=== PATIENT | male | born 1985 | race Caucasian/White ===

== ENCOUNTER 2022-03-27 11:13 | Emergency (ER) | payer OTHER, SELFPAY ==
[2022-03-27 11:23] VITALS: BP 146/81; PULSE 50; RESP 18; TEMP 36.6; O2SAT 100; BMI 25.8
[2022-03-27] MEDS: TET,DIPH,PERTUSS(ACELL),VAC/PF 0.5 ML SYRINGE IM (13:40)
[2022-03-27] MEDS: BACITRACIN OINT 0.9 GM PCKT 2 APPLIC TOP (14:14)
[2022-03-27] MEDS: LIDOCAINE 2% W/EPI INJ 1 ML INJ (14:14)
--- NOTE | 2022-03-27 14:36 | ED.WOUNDLAC ---
HPI - Wound/Laceration <Michael Carver PA-C - Last Filed: 03/27/22 14:45> General Chief Complaint: Wound/Laceration Stated Complaint: need sticthes top lt arm Time Seen by Provider: 03/27/22 12:06 Source: patient Mode of arrival: Ambulatory History of Present Illness HPI narrative: Patient is a 36-year-old male who presents to the emergency room today with complaint of cut to his left arm. 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 This happened earlier this morning. Patient states he is sure that no glass or debris entered the wound. Also states he needs a tetanus shot and would like antibiotics as a prophylaxis for infection. Patient denies any other concerns at this time Related Data Previous Rx's Medication Instructions Recorded cephalexin 500 mg capsule 500 mg PO QID #20 caps 03/27/22 Allergies Allergy/AdvReac Type Severity Reaction Status Date / Time No Known Drug Allergies Allergy Verified 03/27/22 11:23 Review of Systems <Michael Carver PA-C - Last Filed: 03/27/22 14:45> Review of Systems Narrative: R.O.S.: General: No fever, chills or fatigue. Cardiovascular: No chest pain or palpitations Respiratory: No S.O.B. HEENT: No congestion, ear pain, rhinorrhea, sore throat or tinnitus Gastrointestinal: No nausea or vomiting Skin: Cut to left lower arm. Neurological: Awake, alert and in not apparent distress. No Headaches, changes in vision or other related neurological concerns. Exam <Michael Carver PA-C - Last Filed: 03/27/22 14:45> Narrative Exam Narrative: Physical Exam: ? General: normal appearance, well developed, well nourished, alert, and awake. Not in acute distress. ? Head: Normocephalic, no lesions. Chest: Lungs CTAB, no rales, rhonchi or wheezes. ?? Heart: RRR, no murmurs, rubs or gallops. Eyes: PERRLA, EOM's full, conjunctivae clear. ? Neuro: Physiological, no localizing findings, CN3-12 intact. ?? Extremities: Warm, well perfused, FROM, no deformities, no edema. ?? Skin: Patient has a 2 cm laceration to the left distal dorsal arm. The laceration has minor bleeding and minor erythema no foreign body noted at this time. The laceration is on the dorsal radial side of the arm and is about 2 in superior to the wrist. The left arm and hand has good range of motion good capillary refill and intact sensation to touch.? PSYCHIATRIC: The mood is good, no blunted affect. Speech is clear. Thought process is linear, thought content is appropriate. The voice is without significant inflection. Initial Vital Signs Initial Vital Signs: Vital Signs Temperature 98 F 03/27/22 11:23 Pulse Rate 50 L 03/27/22 11:23 Respiratory Rate 18 03/27/22 11:23 Blood Pressure 146/81 H 03/27/22 11:23 Pulse Oximetry 100 03/27/22 11:23 Oxygen Delivery Method 03/27/22 11:23 <Paramjit Srinivasan DO - Last Filed: 03/29/22 11:52> Initial Vital Signs Initial Vital Signs: Vital Signs Temperature 98 F 03/27/22 11:23 Pulse Rate 50 L 03/27/22 11:23 Respiratory Rate 18 03/27/22 11:23 Blood Pressure 146/81 H 03/27/22 11:23 Pulse Oximetry 100 03/27/22 11:23 Oxygen Delivery Method 03/27/22 11:23 Procedures <Michael Carver PA-C - Last Filed: 03/27/22 14:45> Laceration Repair Laceration 1: Site: upper extremity Side (If applicable): left Size (cm): 2 Description: clean Depth: simple, single layer Local Anesthetic: lidocaine 2% and with epi Amount of anesthesia used (mL): 1 Skin layer closed with: nylon Skin layer suture size: 4-0 Number of sutures: 3 Technique: simple, interrupted Course <Michael Carver PA-C - Last Filed: 03/27/22 14:45> Orders Ordered: Discontinued Medications Bacitracin (Bacitracin Oint 0.9 Gm Pckt) 2 applic TOP NOW ONE Stop: 03/27/22 14:03 Last Admin: 03/27/22 14:14 Dose: 2 applic Documented By: RAIZA Diphtheria/Tetanus/Acell Pertussis (Tet,Diph,Pertuss(Acell),Vac/Pf 0.5 Ml Syringe) 0.5 ml IM .ONCE ONE Stop: 03/27/22 11:28 Last Admin: 03/27/22 13:40 Dose: 0.5 ml Documented By: RAIZA Lidocaine/Epinephrine (Lidocaine 2% W/Epi Inj) 1 ml INJ INTRA-OP ONE Stop: 03/27/22 14:03 Last Admin: 03/27/22 14:14 Dose: 1 ml Documented By: RAIZA Vital Signs Vital signs: Vital Signs - 8 hr 03/27/22 11:23 Temperature 98 F Pulse Rate 50 L Respiratory Rate 18 Blood Pressure 146/81 H Pulse Oximetry 100 Oxygen Delivery Method Room Air <Paramjit Srinivasan DO - Last Filed: 03/29/22 11:52> Orders Ordered: Discontinued Medications Bacitracin (Bacitracin Oint 0.9 Gm Pckt) 2 applic TOP NOW ONE Stop: 03/27/22 14:03 Last Admin: 03/27/22 14:14 Dose: 2 applic Documented By: RAIZA Diphtheria/Tetanus/Acell Pertussis (Tet,Diph,Pertuss(Acell),Vac/Pf 0.5 Ml Syringe) 0.5 ml IM .ONCE ONE Stop: 03/27/22 11:28 Last Admin: 03/27/22 13:40 Dose: 0.5 ml Documented By: RAIZA Lidocaine/Epinephrine (Lidocaine 2% W/Epi Inj) 1 ml INJ INTRA-OP ONE Stop: 03/27/22 14:03 Last Admin: 03/27/22 14:14 Dose: 1 ml Documented By: RAIZA Vital Signs Vital signs: Vital Signs - 8 hr 03/27/22 11:23 Temperature 98 F Pulse Rate 50 L Respiratory Rate 18 Blood Pressure 146/81 H Pulse Oximetry 100 Oxygen Delivery Method Room Air MDM - Wound/Laceration <Michael Carver PA-C - Last Filed: 03/27/22 14:45> MDM Narrative Medical decision making narrative: Patient is a 36-year-old male who presents to the emergency room today with her mother with a cut to 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 Upon evaluation of the arm the wound was clean with no foreign body noted on physical examination. Tdap was administered the wound was closed using 3 interrupted sutures without complications. Antibiotics was ensured issued as prophylaxis against infection. Dressing was applied and patient was instructed on care of the wound area. Provide also discussed emergent concerns include cellulitis abscesses another related. Patient also advised to return to the emergency room for any emergent concerns arise patient agrees with plan Discharge Plan Departure Patient Disposition: Home Clinical Impression: Laceration Instructions: DI for Laceration Repair Activity Restrictions/Additional Instructions: *You have been diagnosed with [laceration. Repaired the laceration by inserting 3 interrupted sutures to close the 2 cm laceration. We also applied antibiotic ointment and a dressing. He was also given antibiotic ointment dressing and instructions for care. A suggestion follow these and I also suggest to keep the area dry and refrain from any strenuous or overuse of the extremity involving the close laceration. You also been ordered antibiotics to prophylactically members help with possibility of a dirty of infection. Suggested antibiotics as ordered since discharge she return to the emergency room should any emergent concerns arise.] *What to do: *Please continue to take your regular medications as directed. [ ] New medication prescriptions sent to your pharmacy: [ ] [x] New medication written as a paper prescription [ ] No new medications given *Please follow up with your primary care provider in 2-3 days, call for an appointment. Let them know you were seen in the Emergency Department and that we ask that you be seen in follow up. We will electronically transmit a record of today's note if your PCP is in our system *If you do not have a primary care provider please contact the [facility] Resource line at [phone]. They will ask some questions about your medical history and help get you set up with a doctor in the community. *Return to Emergency Department if you should have any new, worsening or concerning symptoms, such as [fever greater than 101 F, shaking chills, worsening pain, persistent vomiting or other bothersome symptoms] Prescriptions: New cephalexin 500 mg capsule 500 mg PO QID Qty: 20 0RF Visit Report Forms: Patient Portal/API <Paramjit Srinivasan DO - Last Filed: 03/29/22 11:52> Cosign ED Attending Cosdoraature Attestation: I was immediately available in the department for consultation. This documentation has been reviewed and I agree with assessment and plan. Supervised by Paramjit Srinivasan DO
== END 2022-03-27 14:41 | disposition home or self-care (01) ==
PROVIDERS: Emergency Provider Physician Assistant
DX: S41.112A Laceration without foreign body of left upper arm, initial encounter (principal); W26.9XXA Contact with unspecified sharp object(s), initial encounter; Z23 Encounter for immunization
CPT/HCPCS: 12001; 90471; 99283; 99284; 90715